=== PATIENT | female | born 2000 | race Caucasian/White ===

== ENCOUNTER 2025-07-20 18:56 | Day surgery (SDC) | payer BC ==
[2025-07-20] MEDS ORDERED: hydrALAZINE 20 MG/ML VIAL SLOW IVP PRN (20:02)
[2025-07-20 20:07] VITALS: BMI 31.6
== END 2025-07-20 21:40 | disposition home or self-care (01) ==
LOC: CSHLD/OP 18:56
PROVIDERS: ATTEND Obstetrics & Gynecology
DX: O9A.213 Injury, poisoning and certain other consequences of external causes complicating pregnancy, third trimester (principal); S30.811A Abrasion of abdominal wall, initial encounter; Z3A.34 34 weeks gestation of pregnancy; Z67.41 Type O blood, Rh negative; Z88.5 Allergy status to narcotic agent; Z88.0 Allergy status to penicillin; Z79.899 Other long term (current) drug therapy; W54.1XXA Struck by dog, initial encounter
CPT/HCPCS: 76819; 99283